=== PATIENT | male | born 1985 | race Caucasian/White ===

== ENCOUNTER 2024-11-11 01:30 | Emergency (ER) | payer SELFPAY ==
[~2024-11-11] VITALS: Ht 182.9 cm; Wt 106.6 kg
[2024-11-11 03:18] VITALS: BP 122/79; TEMP 98.2; O2SAT 98
== END 2024-11-11 03:18 | disposition home or self-care (01) ==
LOC: ER 01:39
DX: F10.129 Alcohol abuse with intoxication, unspecified (principal); F17.200 Nicotine dependence, unspecified, uncomplicated; K58.9 Irritable bowel syndrome, unspecified; Z60.2 Problems related to living alone; Y90.9 Presence of alcohol in blood, level not specified
CPT/HCPCS: 82962-TC